=== PATIENT | male | born 1965 | race Caucasian/White ===

== ENCOUNTER 2019-05-20 09:53 | Emergency (ER) | payer BC, OTHER ==
[2019-05-20] MEDS ORDERED: NS 0.9% 1000 ML** 1,000 ML IV ONE (10:50)
[2019-05-20] MEDS ORDERED: Acetaminophen TAB* 325 MG PO ONE (10:51)
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
[2019-05-20 11:48] VITALS: BP 139/80
== END 2019-05-20 11:48 | disposition home or self-care (01) ==
LOC: ED 09:53
DX: M54.5 Low back pain (principal); V43.62XA Car passenger injured in collision with other type car in traffic accident, initial encounter; Y92.410 Unspecified street and highway as the place of occurrence of the external cause; E11.9 Type 2 diabetes mellitus without complications; I10 Essential (primary) hypertension; Z88.8 Allergy status to other drugs, medicaments and biological substances
CPT/HCPCS: 71046; 99282; A9270-GY